=== PATIENT | female | born 1985 | race Caucasian/White ===

== ENCOUNTER → 2018-08-04 | Outpatient (CLI) | payer OTHER ==
[2017-01-26 07:00] VITALS: BMI 25.6
[~2018-08-04] MED LIST: IBUP800T37 PO; LOR5/325 PO; OMEP-218 PO; PREN-127 PO
--- NOTE | 2018-08-05 08:19 | RADIOLOGY IMAGING REPORT ---
FACILITY: PATIENT NAME: JOSE F MCKEON : [id number] MR: [id number] V: [id number] EXAM DATE: ORDERING PHYSICIAN: CARISSA TABOR TECHNOLOGIST: Aide Montes RDMS PROCEDURE:US RIGHT BREAST COMPARISON:None. INDICATIONS:Right breast pain in upper portion of the Right breast. FINDINGS: In the 9 o'clock position of the Right breast 6cm from the nipple there is a 4.9 x 2.3 x 4.4mm well circumscribed ovoid hypoechoic nodule which appears to represent a cyst. In the 11 o'clock position of the Right breast 3cm from the nipple is a 4.9 x 2.7 x 5.1mm ovoid hypoechoic nodule. In the 12 o'clock position of the Right breast 2cm from the nipple there is a well circumscribed 5.9 x 2.8 x 5.8mm hypoechoic nodule. These nodules are wider than tall. There is no acoustic shadowing. DIAGNOSTIC CATEGORY 3--PROBABLY BENIGN FINDING. RECOMMENDATIONS: CLINICAL EVALUATION. SIX MONTH FOLLOW-UP ULTRASOUND: RIGHT BREAST. IMPRESSION: BIRADS 3: Probably benign finding. A 6 month follow-up Right breast Ultrasound is recommended to evaluate the hypoechoic nodules as described above unless clinical findings warrant more immediate attention. Clinical follow-up recommended for patient's Right breast pain. Dictated by: Rajni Chavis M.D. on 08/04/2018 at 14:35 Transcribed by: BARNNON on 08/04/2018 at 15:08 Approved by: Rajni Chavis M.D. on 08/05/2018 at 8:18 [facility]
--- NOTE | 2018-08-05 12:05 | RADIOLOGY IMAGING REPORT ---
FACILITY: [facility] [place] PATIENT NAME: JOSE F MCKEON : [id number] MR: [id number] V: [id number] EXAM DATE: ORDERING PHYSICIAN: CARISSA TABOR TECHNOLOGIST: Beverly Solo PROCEDURE:BILATERAL DIAGNOSTIC DIGITAL MAMMOGRAM WITH CAD ASSISTED INTERPRETATION & 3D TOMOSYNTHESIS COMPARISON:None. INDICATIONS:right breast swollen and tender from 6-12 o'clock position FINDINGS: The patient did state to the transitions rn care coordinator however that her pain was 9-3 o'clock. The breasts are heterogeneously dense which can obscure small masses. There is no demonstration of malignant appearing mass, malignant appearing calcifications or other secondary sign of malignancy in either breast. DIAGNOSTIC CATEGORY 3--PROBABLY BENIGN FINDING. RECOMMENDATIONS: CLINICAL EVALUATION. SIX MONTH FOLLOW-UP ULTRASOUND: RIGHT BREAST. IMPRESSION: BIRADS 3: Probably benign finding. A 6 month follow-up Right breast Ultrasound is recommended as described in Today's Right breast Ultrasound report. Clinical follow-up recommended for patient's Right breast pain. Dictated by: Rajni Chavis M.D. on 08/04/2018 at 14:39 Transcribed by: BRANNON on 08/05/2018 at 11:01 Approved by: Rajni Chavis M.D. on 08/05/2018 at 12:04 [facility]
== END ==
LOC: MAMO 01:46
PROVIDERS: ATTEND Physician Assistant
DX: N60.01 Solitary cyst of right breast (principal)
CPT/HCPCS: 77062; 77066